=== PATIENT | female | born 1960 | race Caucasian/White ===

== ENCOUNTER 2019-06-25 07:31 | Day surgery (SDC) | payer MEDICAID ==
[2019-06-23 12:10] LABS: BASOPHILS % (AUTO) 0.8 % (0-1); EOSINOPHILS # (AUTO) 0.3 X10'3 (0-0.9); EOSINOPHILS % (AUTO) 4.9 % (0-6); LYMPHOCYTES % (AUTO) 34.7 % (21-51); MEAN CORPUSCULAR HEMOGLOBIN 31.5 PG (27.0-31.0); MEAN CORPUSCULAR HGB CONC 33.3 g/dL (33.0-36.5); MEAN CORPUSCULAR VOLUME 94.7 FL (78-98); MEAN PLATELET VOLUME 9.4 FL (7.4-10.4); MONOCYTES # (AUTO) 0.6 X10'3 (0-0.9); MONOCYTES % (AUTO) 9.5 % (2-12); NEUTROPHILS # (AUTO) 2.9 X10'3 (1.8-7.7); NEUTROPHILS % (AUTO) 50.1 % (42-75); PRE OP HEMATOCRIT 38.1 % (35.0-45.0); PRE OP HEMOGLOBIN 12.7 g/dL (12.0-16.0); PRE OP PLATELET COUNT 189 X10'3 (140-440); RED BLOOD COUNT 4.02 X10'6 (4.20-5.60)
[2019-06-23 12:26] LABS: ALBUMIN 3.2 G/DL (3.4-5.0); ALKALINE PHOSPHATASE 64 IU/L (46-116); BLOOD UREA NITROGEN 18 MG/DL (7-18); BUN/CREATININE RATIO 22.5 (6.6-38.0); CHLORIDE 108 MMOL/L (99-107); PRE OP ALT 24 U/L (30-65); PRE OP ANION GAP 6 (8-16); PRE OP AST 20 U/L (10-37); PRE OP BILIRUB, TOTAL 0.3 MG/DL (0.0-1.0); PRE OP GLUCOSE 68 MG/DL (70-104); PRE OP POTASSIUM 3.7 MMOL/L (3.4-5.1); PRE OP SODIUM 142 MMOL/L (135-145); TOTAL CARBON DIOXIDE 28.1 MMOL/L (24-32); TOTAL PROTEIN 6.3 G/DL (6.4-8.2); eGFR 73 ML/MIN
[2019-06-23 12:28] LABS: PRE OP INR < 0.9 INR; PRE OP PARTIAL THROMB. TIME 25 SECONDS (22-32); PRE OP PROTIME 9.8 SECONDS (9.0-12.0)
[~2019-06-25] VITALS: Ht 154.9 cm; Wt 51.2 kg
[~2019-06-25 07:31] MED LIST: CELE-85 PO; CYAN-51 PO; CYCL-145 PO; ESTR1TAB28 PO; LEVO150T8 PO; LIDOcaine 0.5% (5mg/ml) 50ml vial ONE; MECL12.584 PO; METH-603 PO; NALO25TA PO; THY15T PO
[2019-06-25] MEDS ORDERED: famotidine 20mg tablet PO ONE (08:00)
[2019-06-25] MEDS ORDERED: CLINDAmcin 900mg/NS 50ml IVPB 50 ML IV ONE (08:00)
[2019-06-25] MEDS ORDERED: ringers solution, lacted 1,000 ML IV SCH ×2 (08:00→08:32)
[2019-06-25] MEDS ORDERED: hydrALAZINE 20mg/ml inj. IV PRN (08:35)
[2019-06-25] MEDS ORDERED: labetalol 20mg/4ml (5mg/ml) syringe IV PRN (08:35)
[2019-06-25] MEDS ORDERED: ondansetron/PF 4mg/2ml inj IV PRN (08:35)
[2019-06-25] MEDS ORDERED: morphine 4 MG/ML inj SYRINge IV PRN ×2 (08:35)
[2019-06-25] MEDS ORDERED: fentaNYL/PF 50MCG/1 ML 2ML syringe IV PRN ×2 (08:35)
[2019-06-25] MEDS ORDERED: levoFLOXACIN-Levaquin 500mg/D5 100 ML IV ONE (08:40)
[2019-06-25 09:13] VITALS: BP 144/94
[2019-06-25 09:19] VITALS: BP 144/94
[2019-06-25] MEDS ORDERED: MIDAZolam 5mg/5ml vial ONE (09:38)
[2019-06-25] MEDS ORDERED: fentaNYL/PF 50MCG/1 ML 2ML syringe ONE (09:38)
[2019-06-25] MEDS ORDERED: BUPIVAcaine/PF 2.5mg/ml (0.25%) 10ml vial ONE (09:47)
[2019-06-25] MEDS ORDERED: propofol inj 20 ML IV ONE (10:31)
[2019-06-25 11:04] VITALS: BP 129/70
--- NOTE | 2019-06-25 11:04 | NUR ---
Received from OR via [facility] , accompanied by Anesthesiologist OJ and report given by Anesthesiolgist. PATIENT WITH 20G PIV IN RIGHT UE RUNNING LR AT 100. DENIES PAIN. LEFT WRIST/ THUMB SPLINT IS CDI. VSS Addendum: 06/25/19 at 1113 by Stephan Cheney RN, RN Amended: Links added.
[2019-06-25 11:14] VITALS: BP 130/75
[2019-06-25 11:24] VITALS: BP 128/74
[2019-06-25 11:34] VITALS: BP 130/78
--- NOTE | 2019-06-25 11:44 | NUR ---
ALL DC CRITERIA HAS BEEN MET. IV TAKEN OUT WITHOUT COMPLICATIONS. ALL INSTRUCTIONS COVERED AND ALL QUESTIONS ANSWERED. DRESSINGS CDI. OUT VIA WHEELCHAIR TO PERSONAL VEHICLE WHERE PATIENT WAS SECURED IN AND DRIVEN HOME BY FAMILY. DAUGHTER PRESENT TO ASSIST IN DRESSING PATIENT AND HEAR DC INSTRUCTIONS. PATIENT WITH DENIES PAIN. GIVEN ICE AND INSTRUCTED ON PROPER ELEVATION FOR ASSISTING IN PAIN CONTROL. TAKEN DOWN VIA WHEELCHAIR TO PERSONAL VEHICLE WHERE SHE WAS SECURED IN FRONT PASSENGER SEAT. Addendum: 06/25/19 at 1207 by Stephan Cheney RN, RN Amended: Links added.
== END 2019-06-25 11:44 | disposition home or self-care (01) ==
LOC: PAS 07:31
PROVIDERS: ATTEND Orthopaedic Surgery Hand Surgery
DX: M18.0 Bilateral primary osteoarthritis of first carpometacarpal joints (principal); G56.02 Carpal tunnel syndrome, left upper limb; G47.00 Insomnia, unspecified; G89.29 Other chronic pain; M19.90 Unspecified osteoarthritis, unspecified site; Z88.5 Allergy status to narcotic agent; Z88.8 Allergy status to other drugs, medicaments and biological substances; Z88.0 Allergy status to penicillin; Z98.890 Other specified postprocedural states; Z90.710 Acquired absence of both cervix and uterus; Z85.850 Personal history of malignant neoplasm of thyroid; F12.90 Cannabis use, unspecified, uncomplicated; Z72.89 Other problems related to lifestyle; Z79.899 Other long term (current) drug therapy; Z98.51 Tubal ligation status; Z79.01 Long term (current) use of anticoagulants
CPT/HCPCS: 25310; 25447; 36415; 64721; 80053; 82948; 85025; 85610; 85730; 93005; J1956; J2001; J2250; J2704; J3010; J3490; J7120; A4215; A4618; A7000

== ENCOUNTER 2021-08-01 12:39 | Outpatient (CLI) | payer MEDICAID ==
[~2021-08-01 12:39] MED LIST changes: +BARIUM SULFATE 340 ML SUSP.RECON***PROCEDURE AREA ONLY**DONT ENTER PO ONE; -LIDOcaine 0.5% (5mg/ml) 50ml vial ONE; +MECL-231 PO; -MECL12.584 PO; -NALO25TA PO; +NALO25TA4 PO
== END 2021-08-01 23:59 | disposition home or self-care (01) ==
LOC: RAD 12:39
PROVIDERS: ATTEND Nurse Practitioner Family
DX: R13.14 Dysphagia, pharyngoesophageal phase (principal); K21.9 Gastro-esophageal reflux disease without esophagitis
CPT/HCPCS: 74230

== ENCOUNTER 2024-01-26 09:59 | Inpatient (IN) | payer MEDICAID ==
[~2024-01-26] VITALS: Ht 154.9 cm; Wt 35.9 kg
[~2024-01-26 09:59] MED LIST changes: -BARIUM SULFATE 340 ML SUSP.RECON***PROCEDURE AREA ONLY**DONT ENTER PO ONE; +CELE-127 PO; -CELE-85 PO; +CYAN-104 PO; -CYAN-51 PO
[2024-01-26] MEDS: LORazepam 2 mg/ml vial IV ONE ×3 (10:16→14:53)
[2024-01-26] MEDS: dextrose 50%-water 50ml dispensing syringe IV ONE (11:12)
[2024-01-26] MEDS: normal saline 1000ML IV soln IVB ONE (11:13)
[2024-01-26 11:23] LABS: BASOPHILS % (AUTO) 0.6 % (0-1); EOSINOPHILS # (AUTO) 0.1 X10'3 (0-0.9); EOSINOPHILS % (AUTO) 1.2 % (0-6); HEMATOCRIT 31.6 % (35.0-45.0); HEMOGLOBIN 10.5 g/dl (12.0-16.0); LYMPHOCYTES # (AUTO) 0.9 X10'3 (1.1-4.8); LYMPHOCYTES % (AUTO) 14.7 % (21-51); MEAN CORPUSCULAR HEMOGLOBIN 32.9 PG (27.0-31.0); MEAN CORPUSCULAR HGB CONC 33.3 g/dL (33.0-36.5); MEAN CORPUSCULAR VOLUME 98.8 FL (78-98); MEAN PLATELET VOLUME 8.9 FL (7.4-10.4); MONOCYTES # (AUTO) 0.5 X10'3 (0-0.9); MONOCYTES % (AUTO) 8.7 % (2-12); NEUTROPHILS # (AUTO) 4.5 X10'3 (1.8-7.7); NEUTROPHILS % (AUTO) 74.8 % (42-75); PLATELET COUNT 156 X10'3 (140-440); RED CELL DISTRIBUTION WIDTH 14.6 % (11.5-14.5); WHITE BLOOD COUNT 5.9 X10'3 (4.5-11.0)
[2024-01-26 11:33] LABS: ANION GAP 10 (8-16); BLOOD UREA NITROGEN 14 MG/DL (7-18); BUN/CREATININE RATIO 13.2 (10.0-20.0); CHLORIDE 98 MMOL/L (99-107); CREATININE 1.06 MG/DL (0.40-0.90); ETHANOL 223 MG/DL (<10); GLUCOSE 72 MG/DL (70-104); POTASSIUM 3.1 MMOL/L (3.5-5.1); SODIUM 134 MMOL/L (135-145); TOTAL CARBON DIOXIDE 26.5 MMOL/L (24-32); eCRCL 52 ML/MIN; eGFR 52 ML/MIN
[2024-01-26 11:34] LABS: LACTIC SEPSIS 2.8 MMOL/L (0.4-2.0)
[2024-01-26 12:24] LABS: ALANINE AMINOTRANSFERASE 29 U/L (12-78); ALBUMIN/GLOBULIN RATIO 1.1 (1.1-1.5); ALKALINE PHOSPHATASE 56 IU/L (46-116); ASPARTATE AMINO TRANSFERASE 41 U/L (10-37); BILIRUBIN,DIRECT 0.1 MG/DL (0-0.3); BILIRUBIN,TOTAL 0.3 MG/DL (0.1-1.0); TOTAL PROTEIN 5.8 G/DL (6.4-8.2)
[2024-01-26 12:39] LABS: BILIRUBIN,URINE NEGATIVE (Neg); CLARITY,URINE SLIGHTLY CLOUDY (Clear); COLOR,URINE STRAW (Yellow); GLUCOSE, URINE 100 mg/dl (Neg); KETONES,URINE NEGATIVE (Neg); LEUKOCYTE ESTERASE ,URINE NEGATIVE (Neg); NITRITES, URINE NEGATIVE (Neg); OCCULT BLOOD,URINE NEGATIVE (Neg); PROTEIN,URINE NEGATIVE (Neg); UROBILINOGEN,URINE 0.2 E.U/dL (0.2-1.0)
[2024-01-26 12:44] LABS: URINE AMPHETAMINE SCREEN NEGATIVE (Neg); URINE BARBITUATE SCREEN NEGATIVE (Neg); URINE BENZODIAZEPINES SCREEN NEGATIVE (Neg); URINE CANNABINOID SCREEN NEGATIVE (Neg); URINE COCAINE SCREEN NEGATIVE (Neg); URINE METHADONE SCREEN POSITIVE (Neg); URINE OPIATE SCREEN NEGATIVE (Neg); URINE PHENCYCLIDINE SCREEN NEGATIVE (Neg)
[2024-01-26 12:47] LABS: UA COLLECTION TYPE STRAIGHT CATH
[2024-01-26 12:49] LABS: BACTERIA,URINE 4+ /HPF (Neg); RBC,URINE 0-2 /HPF (0-2); SQUAMOUS EPITHELIAL CELL,UR MODERATE /LPF (FEW); WBC,URINE 0-4 /HPF (0-4)
[2024-01-26] MEDS: thiamine 100mg/ml 2ml inj. IM ONE (14:18)
[2024-01-26] MEDS: POTASSIUM BICARB 20meq eff tab 20 MEQ TABLET.EFF PO ONE (14:20)
[2024-01-26] MEDS ORDERED: magnesium 4gm in 100ml NS 100 ML IV PRN (14:35)
[2024-01-26] MEDS ORDERED: ondansetron/PF 4mg/2ml inj IV PRN (14:35)
[2024-01-26] MEDS ORDERED: potassium Cl 20 mEq SR tablet PO PRN ×2 (14:35)
[2024-01-26] MEDS ORDERED: magnesium 2GM in 50ml NS 50 ML IV PRN (14:35)
[2024-01-26] MEDS ORDERED: magnesium hydroxide 30ml (MOM) UD suspension PO PRN (14:35)
[2024-01-26] MEDS ORDERED: potassium Cl 40MEQ/1/2NS 520ml 520 ML IV PRN (14:35)
[2024-01-26] MEDS: CefTRIAXone 2gm/D5W 50ml BAG 50 ML IV ONE (14:50)
[2024-01-26] MEDS: potassium cl 20mEq in 1/2 NS 1,000 ML IV ONE (15:31)
[2024-01-26] MEDS: vancomycin/NS 1 GM ADD-VANTAGE 250 ML X 1 DOSE IV ONE (15:34)
[2024-01-26 17:55] VITALS: BP 122/74; PULSE 91; RESP 14; TEMP 96.8; O2SAT 97
[2024-01-26 18:00] VITALS: BP 161/77; PULSE 16; RESP 16; TEMP 96; O2SAT 97
[2024-01-26 20:00] VITALS: RESP 16; O2SAT 96
[2024-01-26] MEDS: docusate sod 100mg capsule PO SCH (20:00)
[2024-01-26] MEDS: thiamine 100mg tablet PO SCH (20:47)
[2024-01-26] MEDS: enoxaparin 40mg/0.4ml syringe SQ SCH (20:47)
[2024-01-26] MEDS: K and/or MAG REPLACEMENT MC SCH (20:48)
[2024-01-26] MEDS: LORazepam 2 mg/ml vial IV PRN (20:50)
[2024-01-26 22:00] VITALS: BP 131/58; PULSE 74; RESP 16; TEMP 98.1; O2SAT 98
[2024-01-27 02:00] VITALS: BP 105/60; PULSE 69; RESP 17; TEMP 98; O2SAT 99
[2024-01-27 06:00] VITALS: BP 140/79; PULSE 58; RESP 14; TEMP 98; O2SAT 97
[2024-01-27 07:35] LABS: BASOPHILS % (AUTO) 0.9 % (0-1); EOSINOPHILS # (AUTO) 0.2 X10'3 (0-0.9); EOSINOPHILS % (AUTO) 3.7 % (0-6); HEMATOCRIT 36.5 % (35.0-45.0); HEMOGLOBIN 11.6 g/dl (12.0-16.0); LYMPHOCYTES # (AUTO) 1.2 X10'3 (1.1-4.8); LYMPHOCYTES % (AUTO) 28.6 % (21-51); MEAN CORPUSCULAR HEMOGLOBIN 32.3 PG (27.0-31.0); MEAN CORPUSCULAR HGB CONC 31.8 g/dL (33.0-36.5); MEAN CORPUSCULAR VOLUME 101.5 FL (78-98); MEAN PLATELET VOLUME 8.8 FL (7.4-10.4); MONOCYTES # (AUTO) 0.4 X10'3 (0-0.9); NEUTROPHILS # (AUTO) 2.4 X10'3 (1.8-7.7); NEUTROPHILS % (AUTO) 57.8 % (42-75); PLATELET COUNT 151 X10'3 (140-440); RED CELL DISTRIBUTION WIDTH 15.1 % (11.5-14.5); WHITE BLOOD COUNT 4.2 X10'3 (4.5-11.0)
[2024-01-27] MEDS: NALOXEGOL OXALATE 25 MG PO SCH (08:00)
[2024-01-27] MEDS: CefTRIAXone/D5W-Rocephin 1gm 50 ML IV SCH (08:07)
[2024-01-27] MEDS: levoTHYROXINE 75mcg tablet PO SCH (08:10)
[2024-01-27] MEDS: multivitamins, therapeutics tablet PO SCH (08:10)
[2024-01-27 08:11] LABS: ALANINE AMINOTRANSFERASE 23 U/L (12-78); ALBUMIN 2.7 G/DL (3.4-5.0); ALKALINE PHOSPHATASE 55 IU/L (46-116); ANION GAP 11 (8-16); ASPARTATE AMINO TRANSFERASE 44 U/L (10-37); BILIRUBIN,TOTAL 0.8 MG/DL (0.1-1.0); BLOOD UREA NITROGEN 7 MG/DL (7-18); BUN/CREATININE RATIO 8.9 (10.0-20.0); CALCIUM 7.4 MG/DL (8.5-10.1); CHLORIDE 105 MMOL/L (99-107); CREATININE 0.79 MG/DL (0.40-0.90); GLUCOSE 59 MG/DL (70-104); LIPASE 19 U/L (16-77); MAGNESIUM 1.7 MG/DL (1.5-2.4); POTASSIUM 3.4 MMOL/L (3.5-5.1); SODIUM 140 MMOL/L (135-145); TOTAL CARBON DIOXIDE 24.1 MMOL/L (24-32); TOTAL PROTEIN 5.4 G/DL (6.4-8.2); eCRCL 54 ML/MIN; eGFR 73 ML/MIN
[2024-01-27] MEDS: estradiol 1mg tablet PO SCH (08:11)
[2024-01-27] MEDS: celeCOXIB 100mg capsule PO SCH (08:11)
[2024-01-27] MEDS: LORazepam 2 mg/ml vial IV PRN (08:20)
[2024-01-27 10:37] LABS: PROTHROMBIN TIME 10.4 SECONDS (9.0-12.0)
[2024-01-27 11:00] VITALS: BP 117/91; PULSE 66; RESP 12; TEMP 97.2; O2SAT 95
[2024-01-27] MEDS ORDERED: BUDE10.27 PO (12:29)
[2024-01-27 15:00] VITALS: BP 139/70; PULSE 72; RESP 12; TEMP 97.9; O2SAT 97
[2024-01-27 18:00] VITALS: BP 157/85; PULSE 75; RESP 15; TEMP 97.3; O2SAT 99
[2024-01-27] MEDS: lactose-reduced food (Ensure Enlive) - 237ml bottle PO SCH (18:00)
[2024-01-27 22:00] VITALS: BP 135/76; PULSE 69; RESP 18; TEMP 97.6; O2SAT 98
[2024-01-28] VITALS (8 sets, daily range): BP systolic 123–162; BP diastolic 72–92; PULSE 64–83; RESP 12–20; TEMP 97–98.9; O2SAT 94–99
[2024-01-28 08:10] LABS: BASOPHILS % (AUTO) 1.1 % (0-1); EOSINOPHILS # (AUTO) 0.1 X10'3 (0-0.9); EOSINOPHILS % (AUTO) 3.8 % (0-6); HEMATOCRIT 35.8 % (35.0-45.0); HEMOGLOBIN 11.5 g/dl (12.0-16.0); LYMPHOCYTES % (AUTO) 26.9 % (21-51); MEAN CORPUSCULAR HEMOGLOBIN 32.4 PG (27.0-31.0); MEAN CORPUSCULAR HGB CONC 32.3 g/dL (33.0-36.5); MEAN CORPUSCULAR VOLUME 100.5 FL (78-98); MEAN PLATELET VOLUME 9.6 FL (7.4-10.4); MONOCYTES # (AUTO) 0.4 X10'3 (0-0.9); MONOCYTES % (AUTO) 11.7 % (2-12); NEUTROPHILS # (AUTO) 2.1 X10'3 (1.8-7.7); NEUTROPHILS % (AUTO) 56.5 % (42-75); PLATELET COUNT 148 X10'3 (140-440); RED BLOOD COUNT 3.56 X10'6 (4.20-5.60); RED CELL DISTRIBUTION WIDTH 15.1 % (11.5-14.5); WHITE BLOOD COUNT 3.7 X10'3 (4.5-11.0)
[2024-01-28 08:18] LABS: PROTHROMBIN TIME 10.3 SECONDS (9.0-12.0)
[2024-01-28 08:34] LABS: ALANINE AMINOTRANSFERASE 21 U/L (12-78); ALBUMIN 2.6 G/DL (3.4-5.0); ALBUMIN/GLOBULIN RATIO 0.9 (1.1-1.5); ALKALINE PHOSPHATASE 53 IU/L (46-116); ANION GAP 7 (8-16); ASPARTATE AMINO TRANSFERASE 27 U/L (10-37); BILIRUBIN,TOTAL 0.5 MG/DL (0.1-1.0); BLOOD UREA NITROGEN 8 MG/DL (7-18); BUN/CREATININE RATIO 10.7 (10.0-20.0); CALCIUM 8.2 MG/DL (8.5-10.1); CHLORIDE 104 MMOL/L (99-107); CREATININE 0.75 MG/DL (0.40-0.90); GLUCOSE 91 MG/DL (70-104); LIPASE 28 U/L (16-77); MAGNESIUM 1.7 MG/DL (1.5-2.4); PHOSPHORUS 3.1 MG/DL (2.3-4.5); POTASSIUM 3.6 MMOL/L (3.5-5.1); SODIUM 140 MMOL/L (135-145); TOTAL CARBON DIOXIDE 28.9 MMOL/L (24-32); TOTAL PROTEIN 5.6 G/DL (6.4-8.2); eCRCL 43 ML/MIN; eGFR 78 ML/MIN
[2024-01-28] MEDS: folic acid 1mg tablet PO SCH (09:45)
[2024-01-28] MEDS: acetaminophen 325mg tablet PO PRN (14:07)
[2024-01-29 02:00] VITALS: BP 152/90; PULSE 76; RESP 15; TEMP 98.5; O2SAT 99
[2024-01-29 06:00] VITALS: BP 149/93; PULSE 68; RESP 16; TEMP 98.2; O2SAT 99
[2024-01-29 07:14] LABS: EOSINOPHILS # (AUTO) 0.1 X10'3 (0-0.9); HEMOGLOBIN 11.6 g/dl (12.0-16.0); WHITE BLOOD COUNT 4.5 X10'3 (4.5-11.0)
[2024-01-29 07:16] LABS: BASOPHILS % (AUTO) 0.9 % (0-1); EOSINOPHILS % (AUTO) 2.7 % (0-6); HEMATOCRIT 35.1 % (35.0-45.0); LYMPHOCYTES # (AUTO) 1.1 X10'3 (1.1-4.8); LYMPHOCYTES % (AUTO) 25.6 % (21-51); MEAN CORPUSCULAR HEMOGLOBIN 32.8 PG (27.0-31.0); MEAN CORPUSCULAR VOLUME 99.4 FL (78-98); MEAN PLATELET VOLUME 9.7 FL (7.4-10.4); MONOCYTES # (AUTO) 0.6 X10'3 (0-0.9); MONOCYTES % (AUTO) 12.6 % (2-12); NEUTROPHILS # (AUTO) 2.6 X10'3 (1.8-7.7); NEUTROPHILS % (AUTO) 58.2 % (42-75); PLATELET COUNT 183 X10'3 (140-440); RED BLOOD COUNT 3.53 X10'6 (4.20-5.60); RED CELL DISTRIBUTION WIDTH 14.8 % (11.5-14.5)
[2024-01-29 07:21] LABS: INR 0.9 INR; PROTHROMBIN TIME 10.1 SECONDS (9.0-12.0)
[2024-01-29 07:35] LABS: ALANINE AMINOTRANSFERASE 18 U/L (12-78); ALBUMIN 2.5 G/DL (3.4-5.0); ALBUMIN/GLOBULIN RATIO 0.8 (1.1-1.5); ALKALINE PHOSPHATASE 50 IU/L (46-116); ANION GAP 2 (8-16); ASPARTATE AMINO TRANSFERASE 18 U/L (10-37); BILIRUBIN,TOTAL 0.3 MG/DL (0.1-1.0); BLOOD UREA NITROGEN 9 MG/DL (7-18); BUN/CREATININE RATIO 11.5 (10.0-20.0); CALCIUM 8.5 MG/DL (8.5-10.1); CHLORIDE 104 MMOL/L (99-107); CREATININE 0.78 MG/DL (0.40-0.90); GLUCOSE 117 MG/DL (70-104); LIPASE 49 U/L (16-77); MAGNESIUM 1.7 MG/DL (1.5-2.4); PHOSPHORUS 4.3 MG/DL (2.3-4.5); POTASSIUM 3.8 MMOL/L (3.5-5.1); SODIUM 138 MMOL/L (135-145); THYROID STIMULATING HORMONE 8.71 ulU/ml (0.34-4.50); TOTAL CARBON DIOXIDE 32.5 MMOL/L (24-32); TOTAL PROTEIN 5.6 G/DL (6.4-8.2); eCRCL 41 ML/MIN; eGFR 74 ML/MIN
[2024-01-29 08:00] VITALS: RESP 16; O2SAT 96
[2024-01-29 11:00] VITALS: BP 170/96; PULSE 76; RESP 15; TEMP 97.9; O2SAT 100
[2024-01-29] MEDS ORDERED: LEVO175T7 PO (12:21)
[2024-01-29 13:02] VITALS: BP 140/63; PULSE 72; RESP 16; O2SAT 98
[2024-01-29] MEDS ORDERED: ACAM333T8 PO (21:00)
[2024-01-31] MEDS ORDERED: folic acid 1mg tablet PO SCH (08:00)
== END 2024-01-29 15:28 | disposition home or self-care (01) | DRG 42 ==
LOC: ER 09:59 → ED HOLD 14:46 → EDBEDREQ 17:03 → PCU 3S 17:47
PROVIDERS: ADMIT Family Medicine; ATTEND Family Medicine
DX: G31.2 Degeneration of nervous system due to alcohol (principal); G92.8 Other toxic encephalopathy; N17.9 Acute kidney failure, unspecified; E87.20 Acidosis, unspecified; E87.6 Hypokalemia; N39.0 Urinary tract infection, site not specified; R58 Hemorrhage, not elsewhere classified; J45.909 Unspecified asthma, uncomplicated; G89.29 Other chronic pain; E89.0 Postprocedural hypothyroidism; F10.229 Alcohol dependence with intoxication, unspecified; Y90.7 Blood alcohol level of 200-239 mg/100 ml; F10.239 Alcohol dependence with withdrawal, unspecified; Z20.822 Contact with and (suspected) exposure to COVID-19; F03.90 Unspecified dementia, unspecified severity, without behavioral disturbance, psychotic disturbance, mood disturbance, and anxiety; D53.9 Nutritional anemia, unspecified; Z88.1 Allergy status to other antibiotic agents; Z91.041 Radiographic dye allergy status; Z85.850 Personal history of malignant neoplasm of thyroid; Z88.5 Allergy status to narcotic agent; Z88.0 Allergy status to penicillin; Z88.8 Allergy status to other drugs, medicaments and biological substances; Z91.018 Allergy to other foods; Z79.899 Other long term (current) drug therapy; Z90.710 Acquired absence of both cervix and uterus
CPT/HCPCS: 36415; 70450; 71045; 80048; 80053; 80076; 80305; 80320; 81001; 82140; 82948; 83605; 83690; 83735; 84100; 84443; 84484; 85025; 85610; 87040; 87077; 87081; 87088; 87186; 87811; 92508; 92616; 93005; 97161; 97530; 99285; A4615; A6250; A6258; A6455; C1758; G0378; J0696; J1650; J2060; J3370; J3411; J3480; J3490; J7030

== ENCOUNTER → 2024-03-16 | Outpatient (CLI) | payer MEDICAID ==
[~2024-03-16] MED LIST changes: +ACAM333T8 PO; +BUDE10.27 PO; -LEVO150T8 PO; +LEVO175T7 PO
== END | disposition home or self-care (01) ==
LOC: VAS 13:34
PROVIDERS: ATTEND General Practice
DX: M47.812 Spondylosis without myelopathy or radiculopathy, cervical region (principal); M50.30 Other cervical disc degeneration, unspecified cervical region; R06.2 Wheezing; R60.9 Edema, unspecified; R26.89 Other abnormalities of gait and mobility
CPT/HCPCS: 72050; 93970